=== PATIENT | male | born 1990 | race Caucasian/White ===

== ENCOUNTER → 2016-12-05 | Outpatient (CLI) | payer SELFPAY | LOC: M OUTALCOH 12:37 | PROVIDERS: ATTEND Psychiatry & Neurology Psychiatry | DX: Z13.9 Encounter for screening, unspecified (principal); F11.20 Opioid dependence, uncomplicated; F14.20 Cocaine dependence, uncomplicated ==

== ENCOUNTER 2017-04-28 15:42 | Emergency (ER) | payer MEDICAID, OTHER ==
[~2017-04-28] VITALS: Ht 193 cm; Wt 101.2 kg
[2017-04-28] MEDS ORDERED: CEFTAROLINE FOSAMIL 600 MG in D5W MINI-BAG PLUS 50 ML IV ONE (18:30)
[2017-04-28] MEDS ORDERED: IBUPROFEN 600 MG TAB PO ONE (18:30)
[2017-04-28 19:10] LABS: BASO % 0.3 % (0.0-1.0); EOS # 0.1 K/mm3 (0.0-0.50); EOS % 0.7 % (0.0-3.0); LARGE UNSTAINED CELL # 0.2 K/mm3 (0.0-0.4); LARGE UNSTAINED CELL % 1.7 % (0.0-4.0); LYMPH # 1.5 K/mm3 (1.5-6.5); LYMPH % 11.6 % (24.0-44.0); MEAN CORPUSCULAR HEMOGLOBIN 31.9 pg (27.0-33.0); MEAN CORPUSCULAR HGB CONC 36.3 g/dl (32.0-36.5); MEAN CORPUSCULAR VOLUME 87.9 fl (80.0-96.0); MONO # 0.9 K/mm3 (0.0-0.8); MONO % 7.5 % (0.0-5.0); NEUTROPHILS # 8.9 K/mm3 (1.8-7.7); NEUTROPHILS % 78.2 % (36.0-66.0); PLATELET COUNT, AUTOMATED 185 k/mm3 (150-450); RED CELL DISTRIBUTION WIDTH 11.9 % (11.5-14.5); WHITE BLOOD COUNT 11.4 K/mm3 (4.0-10.0)
--- NOTE | 2017-04-28 19:25 | REP ---
Duplex extremity venous ultrasound: Bilateral lower extremity. History: Pain and swelling. Findings: The deep veins are anechoic and fully compressible from the groin to the popliteal fossa in the right and left lower extremity. Color flow imaging is homogeneous. Spectral Doppler interrogation demonstrates intact respiratory variation in flow and normal manual augmentation of flow. There is no evidence of deep vein thrombosis. Impression: Negative bilateral lower extremity duplex venous ultrasound. No evidence of deep vein thrombosis. Signed by Mike Abbott MD 04/28/2017 07:16 P
[2017-04-28 19:26] LABS: ALBUMIN 3.5 GM/DL (3.2-5.2); ALBUMIN/GLOBULIN RATIO 0.78 (1.00-1.93); ALKALINE PHOSPHATASE 81 U/L (45-117); ALT/SGPT 65 U/L (12-78); ANION GAP 13 MEQ/L (8-16); AST/SGOT 46 U/L (15-37); BLOOD UREA NITROGEN 9 MG/DL (7-18); CARBON DIOXIDE LEVEL 24 MEQ/L (21-32); CHLORIDE LEVEL 98 MEQ/L (98-107); GLOMERULAR FILTRATION RATE > 60.0 (>60); GLUCOSE, FASTING 115 MG/DL (70-105); POTASSIUM SERUM 3.1 MEQ/L (3.5-5.1); SODIUM LEVEL 135 MEQ/L (136-145)
[2017-04-28] MEDS ORDERED: KEFL500C17 PO (20:24)
[2017-04-28] MEDS ORDERED: BACT800T5 PO (20:24)
[2017-04-28 20:37] VITALS: BP 130/81
== END 2017-04-28 20:30 | disposition home or self-care (01) ==
LOC: M ED 15:42
DX: L03.115 Cellulitis of right lower limb (principal); L03.116 Cellulitis of left lower limb; R50.9 Fever, unspecified; Z86.19 Personal history of other infectious and parasitic diseases; F17.200 Nicotine dependence, unspecified, uncomplicated

== ENCOUNTER → 2018-06-11 | Outpatient (REF) | payer MEDICAID ==
[2018-06-11 12:53] LABS: BASO # 0.1 10^3/uL (0.0-0.2); BASO % 0.9 % (0.0-1.0); EOS # 0.2 10^3/uL (0.0-0.50); HEMATOCRIT 45.8 % (42.0-52.0); HEMOGLOBIN 16.6 g/dl (13.5-17.5); IMMATURE GRANULOCYTE % 0.2 % (0-3.0); LYMPH # 2.1 10^3/uL (1.5-6.5); LYMPH % 36.4 % (24.0-44.0); MEAN CORPUSCULAR HEMOGLOBIN 32.7 pg (27.0-33.0); MEAN CORPUSCULAR HGB CONC 36.2 g/dl (32.0-36.5); MEAN CORPUSCULAR VOLUME 90.3 fl (80.0-96.0); MONO # 0.6 10^3/uL (0.0-0.8); MONO % 10.2 % (0.0-5.0); NEUTROPHILS # 2.8 10^3/uL (1.8-7.7); NEUTROPHILS % 49.3 % (36.0-66.0); PLATELET COUNT, AUTOMATED 195 10^3/uL (150-450); RED BLOOD COUNT 5.07 10^6/uL (4.30-6.10); RED CELL DISTRIBUTION WIDTH 11.9 % (11.5-14.5); WHITE BLOOD COUNT 5.7 10^3/uL (4.0-10.0)
[2018-06-11 13:06] LABS: ALBUMIN 4.1 GM/DL (3.2-5.2); ALBUMIN/GLOBULIN RATIO 1.14 (1.00-1.93); ALKALINE PHOSPHATASE 73 U/L (45-117); ALT/SGPT 204 U/L (12-78); ANION GAP 6 MEQ/L (8-16); AST/SGOT 84 U/L (7-37); BILIRUBIN,TOTAL 1.1 MG/DL (0.2-1.0); BLOOD UREA NITROGEN 16 MG/DL (7-18); CALCIUM LEVEL 9.2 MG/DL (8.5-10.1); CARBON DIOXIDE LEVEL 28 MEQ/L (21-32); CHLORIDE LEVEL 106 MEQ/L (98-107); GLOMERULAR FILTRATION RATE > 60.0 (>60); GLUCOSE, FASTING 84 MG/DL (70-100); POTASSIUM SERUM 4.1 MEQ/L (3.5-5.1); SODIUM LEVEL 140 MEQ/L (136-145); TOTAL PROTEIN 7.7 GM/DL (6.4-8.2)
[2018-06-12 13:27] LABS: HEPATITIS B SURFACE ANTIBODY POSITIVE (POSITIVE)
[2018-06-12 13:38] LABS: HEPATITIS B SURFACE ANTIGEN NEGATIVE (NEGATIVE)
[2018-06-12 14:07] LABS: HIV 1&2 SCREEN CENTAUR NEGATIVE (NEGATIVE)
[2018-06-20 00:08] LABS: ALPHA 2-MACROGLOBULIN 230 mg/dL (110-276); ALT 210 IU/L (0-55); APOLIPOPROTEIN A-1 103 mg/dL (101-178); GGT 19 IU/L (0-65); HAPTOGLOBIN 115 mg/dL (34-200); HEPATITIS A IgG TOTAL Positive (Negative); HEPATITIS B CORE ANTIBODY IGG Negative (Negative); HEPATITIS C QUANTITATION 456830 IU/mL (.); HEPATITIS C VIRUS GENOTYPE 3 (.); NECROINFLAM SCORE 0.82 (0.00-0.17); NECROINFLAMM GRADE A3-Severe activity (.); TOTAL BILIRUBIN 0.8 mg/dL (0.0-1.2)
== END ==
LOC: M SFHCPLAZ 10:41
DX: B18.2 Chronic viral hepatitis C (principal)

== ENCOUNTER 2019-01-01 16:58 | Emergency (ER) | payer MEDICAID, OTHER ==
[~2019-01-01] VITALS: Ht 193 cm; Wt 93.5 kg
[~2019-01-01 16:58] MED LIST: BACT800T5 PO; KEFL500C17 PO
[2019-01-01] MEDS ORDERED: HYDR-3363 PO (17:12)
[2019-01-01] MEDS ORDERED: CLON-412 PO (17:12)
[2019-01-01] MEDS ORDERED: ESCI10TA2 PO (17:12)
[2019-01-01] MEDS ORDERED: SUBO8MIS (17:12)
[2019-01-01] MEDS ORDERED: GABA-843 PO (17:12)
[2019-01-01] MEDS ORDERED: CEFTAROLINE FOSAMIL 600 MG in D5W MINI-BAG PLUS 50 ML IV ONE (18:15)
[2019-01-01 18:54] LABS: BASO # 0.1 10^3/uL (0.0-0.2); EOS # 0.3 10^3/uL (0.0-0.50); EOS % 2.9 % (0.0-3.0); HEMATOCRIT 37.1 % (42.0-52.0); HEMOGLOBIN 13.4 g/dl (13.5-17.5); LYMPH # 2.3 10^3/uL (1.5-6.5); LYMPH % 27.1 % (24.0-44.0); MEAN CORPUSCULAR HEMOGLOBIN 30.7 pg (27.0-33.0); MEAN CORPUSCULAR HGB CONC 36.1 g/dl (32.0-36.5); MEAN CORPUSCULAR VOLUME 85.1 fl (80.0-96.0); MONO % 11.9 % (0.0-5.0); NEUTROPHILS # 4.9 10^3/uL (1.8-7.7); NEUTROPHILS % 56.8 % (36.0-66.0); PLATELET COUNT, AUTOMATED 221 10^3/uL (150-450); RED BLOOD COUNT 4.36 10^6/uL (4.30-6.10); WHITE BLOOD COUNT 8.6 10^3/uL (4.0-10.0)
[2019-01-01 19:29] LABS: BLOOD UREA NITROGEN 14 MG/DL (7-18); C REACTIVE PROTEIN QUANTITATIV 5.17 MG/DL (0.00-0.30); CALCIUM LEVEL 8.4 MG/DL (8.5-10.1); CARBON DIOXIDE LEVEL 25 MEQ/L (21-32); CHLORIDE LEVEL 106 MEQ/L (98-107); CREATININE FOR GFR 1.22 MG/DL (0.70-1.30); GLOMERULAR FILTRATION RATE > 60.0 (>60); GLUCOSE, FASTING 90 MG/DL (70-100); POTASSIUM SERUM 3.6 MEQ/L (3.5-5.1); SODIUM LEVEL 136 MEQ/L (136-145)
[2019-01-01 19:40] LABS: ERYTHROCYTE SEDIMENTATION RATE 16 mm/hr (0-15)
[2019-01-01] MEDS ORDERED: KEFL500C17 PO (19:53)
[2019-01-01] MEDS ORDERED: BACT800T5 PO (19:53)
[2019-01-01 20:03] VITALS: BP 122/69
== END 2019-01-01 20:04 | disposition home or self-care (01) ==
LOC: M ED 16:58
DX: L03.116 Cellulitis of left lower limb (principal); F11.10 Opioid abuse, uncomplicated; F14.10 Cocaine abuse, uncomplicated; B19.20 Unspecified viral hepatitis C without hepatic coma; F41.9 Anxiety disorder, unspecified; F32.9 Major depressive disorder, single episode, unspecified; F17.210 Nicotine dependence, cigarettes, uncomplicated; Z79.899 Other long term (current) drug therapy
CPT/HCPCS: 80048; 83605; 85025; 85652; 86140; 96365; 96366; 99284; J0712

== ENCOUNTER 2019-11-25 06:42 | Emergency (ER) | payer OTHER, SELFPAY ==
[~2019-11-25] VITALS: Ht 193 cm; Wt 102.5 kg
[2019-11-25 06:42] VITALS: BP 132/96
[~2019-11-25 06:42] MED LIST changes: +CLON-412 PO; +ESCI10TA2 PO; +GABA-843 PO; +HYDR-3363 PO; +SUBO8MIS
--- NOTE | 2019-11-25 08:00 | REP ---
Left elbow series: Four views. History: Loss of motion. Findings: Four views of the left elbow demonstrate normal bones, joints, and soft tissues. No fracture, subluxation or joint effusion is seen. Soft tissues are unremarkable. Impression: Negative radiographs of the left elbow. Electronically Signed by Mike Abbott MD 11/25/2019 07:52 A
--- NOTE | 2019-11-25 08:03 | REP ---
Soft-tissue ultrasound left antecubital fossa. History: Rule out abscess. Findings: The left antecubital fossa is scanned medially and laterally. No abnormal fluid collection is seen. No evidence of venous thrombus or mass lesion. Impression: No abnormality noted sonographically. Electronically Signed by Mike Abbott MD 11/25/2019 07:55 A
== END 2019-11-25 08:15 | disposition home or self-care (01) ==
LOC: M ED 06:42
DX: R20.2 Paresthesia of skin (principal); F11.90 Opioid use, unspecified, uncomplicated; F17.210 Nicotine dependence, cigarettes, uncomplicated

== ENCOUNTER 2019-11-28 22:55 | Emergency (ER) | payer MEDICAID, SELFPAY ==
[~2019-11-28] VITALS: Ht 193 cm; Wt 100.0 kg
[2019-11-28 23:03] VITALS: BP 140/86
[2019-11-28] MEDS ORDERED: BACT800T5 PO (23:03)
[2019-11-28] MEDS ORDERED: BACTRIM 160MG/800MG DS TAB PO ONE (23:15)
== END 2019-11-28 23:33 | disposition home or self-care (01) ==
LOC: M ED 22:55
DX: L03.114 Cellulitis of left upper limb (principal)

== ENCOUNTER 2019-12-10 07:12 | Emergency (ER) | payer MEDICAID ==
[~2019-12-10] VITALS: Ht 193 cm; Wt 96.8 kg
[2019-12-10 08:15] LABS: BASO % 0.7 % (0.0-1.0); EOS # 0.2 10^3/uL (0.0-0.5); EOS % 2.8 % (0.0-3.0); HEMATOCRIT 40.5 % (42.0-52.0); HEMOGLOBIN 14.2 g/dl (13.5-17.5); LYMPH # 1.9 10^3/uL (1.5-5.0); MEAN CORPUSCULAR HEMOGLOBIN 31.3 pg (27.0-33.0); MEAN CORPUSCULAR HGB CONC 35.1 g/dl (32.0-36.5); MEAN CORPUSCULAR VOLUME 89.2 fl (80.0-96.0); MONO # 0.5 10^3/uL (0.0-0.8); MONO % 10.1 % (0.0-5.0); NEUTROPHILS # 2.7 10^3/uL (1.5-8.5); PLATELET COUNT, AUTOMATED 306 10^3/uL (150-450); RED BLOOD COUNT 4.54 10^6/uL (4.30-6.10); WHITE BLOOD COUNT 5.4 10^3/uL (4.0-10.0)
--- NOTE | 2019-12-10 08:24 | REP ---
Left shoulder: Three views. History: Left shoulder pain. Findings: The left glenohumeral and acromioclavicular joints are normally aligned. No fracture or subluxation is seen. Periarticular soft tissues are unremarkable. Impression: Negative radiographs of the left shoulder. Electronically Signed by Mike Abbott MD 12/10/2019 08:16 A
[2019-12-10 08:43] LABS: ALBUMIN 3.2 GM/DL (3.2-5.2); ALT/SGPT 117 U/L (12-78); BILIRUBIN,TOTAL 0.7 MG/DL (0.2-1.0); BLOOD UREA NITROGEN 9 MG/DL (7-18); CALCIUM LEVEL 8.5 MG/DL (8.5-10.1); CARBON DIOXIDE LEVEL 27 MEQ/L (21-32); CHLORIDE LEVEL 106 MEQ/L (98-107); CREATININE FOR GFR 0.85 MG/DL (0.70-1.30); GLOMERULAR FILTRATION RATE > 60.0 (>60); GLUCOSE, FASTING 86 MG/DL (70-100); POTASSIUM SERUM 3.8 MEQ/L (3.5-5.1); SODIUM LEVEL 137 MEQ/L (136-145); TOTAL PROTEIN 7.1 GM/DL (6.4-8.2)
--- NOTE | 2019-12-10 09:16 | REP ---
Left upper extremity duplex venous ultrasound: History: Left upper extremity paresthesias. History of intravenous drug use. Rule out venous thrombosis. Findings: The left internal jugular, axillary, brachial, basilic, and cephalic veins are anechoic and compressible in the left upper extremity. Color flow imaging is homogeneous. Spectral Doppler interrogation is unremarkable. There is no evidence of left upper extremity venous thrombosis. Impression: Negative left upper extremity duplex venous ultrasound. No evidence of venous thrombosis. Electronically Signed by Mike Abbott MD 12/10/2019 09:07 A
--- NOTE | 2019-12-10 09:18 | REP ---
There is a left upper extremity arterial Doppler ultrasound: History: Left upper extremity paresthesias. History of intravenous drug use. Findings: Left upper extremity arterial tree is normal in caliber, demonstrating normal arterial Doppler waveforms and velocities. No evidence of occlusion or stenosis seen. Velocity chart left upper extremity arteries: Distal subclavian artery 129 cm/S Axillary artery 80 Proximal radial artery mid humerus 68 Proximal radial artery forearm 67 Radial artery rest 58 Ulnar artery mid humerus 121 Ulnar artery proximal forearm 65 Ulnar artery at the wrist 67 Electronically Signed by Mike Abbott MD 12/10/2019 09:10 A
[2019-12-10 09:40] VITALS: BP 134/87
== END 2019-12-10 09:32 | disposition left against medical advice (07) ==
LOC: M ED 07:12
DX: R74.0 Nonspecific elevation of levels of transaminase and lactic acid dehydrogenase [LDH] (principal); R53.1 Weakness; B19.20 Unspecified viral hepatitis C without hepatic coma; F11.20 Opioid dependence, uncomplicated; F17.210 Nicotine dependence, cigarettes, uncomplicated

== ENCOUNTER → 2020-04-26 | Outpatient (REF) | payer OTHER | LOC: M LAB REF 16:41 | PROVIDERS: ATTEND Surgery | DX: J00 Acute nasopharyngitis [common cold] (principal) ==

== ENCOUNTER 2021-08-25 11:59 | Inpatient (IN) | payer MEDICAID, OTHER ==
[~2021-08-25] VITALS: Ht 193 cm; Wt 95.5 kg
[~2021-08-25 11:59] MED LIST changes: +ESCI10TA16 PO; -ESCI10TA2 PO; +GABA-282 PO; -GABA-843 PO
[2021-08-25 13:00] LABS: HEMOGLOBIN 14.5 g/dl (13.5-17.5); MEAN CORPUSCULAR HEMOGLOBIN 31.3 pg (27.0-33.0); MEAN CORPUSCULAR HGB CONC 34.5 g/dl (32.0-36.5); MEAN CORPUSCULAR VOLUME 90.7 fl (80.0-96.0); PLATELET COUNT, AUTOMATED 248 10^3/uL (150-450); RED BLOOD COUNT 4.63 10^6/uL (4.30-6.10); WHITE BLOOD COUNT 14.5 10^3/uL (4.0-10.0)
[2021-08-25] MEDS ORDERED: LORazepam 1 MG TAB PO STA (13:18)
[2021-08-25 13:26] LABS: AMPHETAMINES LEVEL URINE POSITIVE (NEGATIVE); BARBITURATES URINE NEGATIVE (NEGATIVE); BENZODIAZEPINES URINE NEGATIVE (NEGATIVE); CANNABINOIDS URINE POSITIVE (NEGATIVE); COCAINE METABOLITE URINE POSITIVE (NEGATIVE); METHADONE URINE NEGATIVE (NEGATIVE); OPIATES URINE POSITIVE (NEGATIVE); PHENCYCLIDINE URINE NEGATIVE (NEGATIVE)
[2021-08-25 13:35] LABS: ALBUMIN 4.1 GM/DL (3.2-5.2); ALT/SGPT 60 U/L (12-78); BILIRUBIN,DIRECT 0.3 MG/DL (0.0-0.2); BLOOD UREA NITROGEN 15 MG/DL (7-18); CALCIUM LEVEL 8.9 MG/DL (8.5-10.1); CARBON DIOXIDE LEVEL 28 MEQ/L (21-32); CHLORIDE LEVEL 106 MEQ/L (98-107); CREATININE FOR GFR 1.32 MG/DL (0.70-1.30); ETHYL ALCOHOL (ETHANOL) < 0.003 % (0.000-0.010); GLOMERULAR FILTRATION RATE > 60.0 (>60); GLUCOSE, FASTING 90 MG/DL (70-100); POTASSIUM SERUM 3.7 MEQ/L (3.5-5.1); SALICYLATE LEVEL < 1.7 MG/DL (5.0-30.0); SODIUM LEVEL 141 MEQ/L (136-145); TOTAL PROTEIN 7.8 GM/DL (6.4-8.2)
[2021-08-25 13:36] LABS: ACETAMINOPHEN LEVEL < 2.0 UG/ML (10.0-30.0)
[2021-08-25 17:57] LABS: RSV AMPLIFICATION NEGATIVE (NEGATIVE)
[2021-08-25] MEDS ORDERED: NAPR-837 PO (18:00)
[2021-08-25] MEDS ORDERED: HOME MED LIST COMPLETE! XX SCH (18:05)
[2021-08-25] MEDS ORDERED: OLANZapine ORAL DISINTEGRATING TAB 5MG PO PRN (18:55)
[2021-08-25] MEDS ORDERED: ACETAMINOPHEN TAB 650MG DOSE (2X325MG) PO PRN (18:55)
[2021-08-25] MEDS ORDERED: MOM 30ML SUSPENSION UDC PO PRN (18:55)
[2021-08-25] MEDS ORDERED: MAALOX 30 ML SUSP *UDC PO PRN (18:55)
[2021-08-25] MEDS ORDERED: NAPROXEN 250 MG TAB PO SCH (21:00)
[2021-08-25] MEDS ORDERED: NAPROXEN 250 MG TAB PO ONE (21:00)
[2021-08-25 23:39] VITALS: BP 124/67
[2021-08-25] MEDS: traZODone 50 MG TAB PO PRN (23:45)
[2021-08-26 06:33] VITALS: BP 109/56
--- NOTE | 2021-08-26 09:56 | HPEPDOC ---
[facility] Medical History & Physical Date of Admission Aug 26, 2021 Date of Service: Aug 26, 2021 History and Physical CHIEF COMPLAINT: "I don't want to talk about it" HISTORY OF PRESENT ILLNESS: 31-year-old male with past medical history of chronic hepatitis C, opioid dependence, insomnia, depression presented emergency room department via police enforcement for possible suicidal ideation. Patient did not want to contribute to the history at this time. As per chart review, patient was recently released from [facility] approximately a month and a half ago and relapsed using recreational drugs. He was found by his family using ? IV heroin and got upset when the police was called. It is possible he may have made suicidal threats. At this junction, patient reports he was seen at [facility] clinic approximately a month ago for back pain and was given naproxen which she has been taking since. He reports resolution in his pain. He denies problems with urination and denied hematuria. He denies chest pain, shortness of breath, abdominal pain, headaches, blurry vision, problems with bowel movements. PAST MEDICAL HISTORY: As mentioned above PAST SURGICAL HISTORY: Denies SOCIAL HISTORY: Smokes approximately a pack per day. Admits to using recreational drugs, drug screen was positive for opiates, amphetamines, cocaine, and cannabis. Denies alcohol use. FAMILY HISTORY: Mother: Lung carcinoma ALLERGIES: Please see below. REVIEW OF SYSTEMS: 10 point review of system was negative except for what is noted in the HPI HOME MEDICATIONS: Please see below. PHYSICAL EXAMINATION: VITAL SIGNS: Please see below General: Lying in bed, no acute distress Head/Neck/Throat: Trachea midline, mucous membranes moist Eyes: Sclera anicteric, no erythema or discharge appreciated bilateral Thorax: Normal respiratory effort on room air, lungs clear to auscultation bilaterally, no wheezes/rales/rhonchi Cardiovascular: Normal rate, regular rhythm, normal S1, S2; no S3, S4, rubs/gallops/murmurs Abdomen: Bowel sounds present, soft/nontender/nondistended Genitourinary: No CVA tenderness, no Gómez in place Musculoskeletal: Moving all extremities, no edema Skin: Warm, dry Neurologic: AAOx3, speech fluent and goal-directed, no focal deficits, grossly intact LABORATORY DATA: See below. IMAGING: No imaging to review at this time MICROBIOLOGY: Please see below. ASSESSMENT/PLAN: 31-year-old male 31-year-old male with past medical history of chronic hepatitis C, opioid dependence, insomnia, depression presented emergency room department via police enforcement for possible suicidal ideation. #Mood disorder -We will defer to psychiatric team for management. #Leukocytosis -There is no evidence of infection at this time and suspect that this is reactive. Repeat CBC to ensure it is downtrending, follow off antibiotics. #Acute kidney injury -Creatinine in 12/10/2019 was 0.85. Patient was taking naproxen and should be discontinued. Repeat chemistry to ensure renal function is improving. #DVT prophylaxis -Encourage ambulation Vital Signs Vital Signs Date Time Temp Pulse Resp B/P (MAP) Pulse Ox O2 Delivery O2 Flow Rate FiO2 08/26/21 06:33 97.7 65 16 109/56 (73) 96 Room Air Laboratory Data Labs 24H Laboratory Tests 2 08/25/21 12:44: Nucleated Red Blood Cells % (auto) 0.0, Anion Gap 7L, Glomerular Filtration Rate > 60.0, Calcium Level 8.9, Total Bilirubin 1.0, Direct Bilirubin 0.3H, Aspartate Amino Transf (AST/SGOT) 116H, Alanine Aminotransferase (ALT/SGPT) 60, Alkaline Phosphatase 103, Total Protein 7.8, Albumin 4.1, Albumin/Globulin Ratio 1.1, Thyroid Stimulating Hormone (TSH) 2.740, Salicylates Level < 1.7L, Urine Opiates Screen POSITIVEH, Urine Methadone Screen NEGATIVE, Acetaminophen Level < 2.0L, Urine Barbiturates Screen NEGATIVE, Urine Phencyclidine Screen NEGATIVE, Urine A mphetamines Screen POSITIVEH, Urine Benzodiazepines Screen NEGATIVE, Urine Cocaine Metabolite Screen POSITIVEH, Urine Cannabinoids Screen POSITIVEH, Ethyl Alcohol Level < 0.003 08/25/21 17:13: Coronavirus (COVID-19)(PCR) NEGATIVE, Influenza Type A (RT-PCR) NEGATIVE, Influenza Type B (RT-PCR) NEGATIVE, Respiratory Syncytial Virus (PCR) NEGATIVE CBC/BMP Laboratory Tests 08/25/21 12:44 Home Medications Scheduled Naproxen (Naprosyn) 500 Mg Tablet, 500 MG PO BID take with food Allergies Coded Allergies: No Known Allergies (Unverified , 04/28/17) SHAQ TEIENNE M.D. Aug 26, 2021 09:56
[2021-08-26 15:42] VITALS: BP 122/75
[2021-08-26] MEDS: traZODone 50 MG TAB PO PRN (21:05)
--- NOTE | 2021-08-26 23:44 | MHHPE ---
REPLACED BY [facility] HISTORY AND PHYSICAL DATE OF ADMISSION: 08/25/2021 This is a video assessment. We are doing this because of the pandemic. He is in the inpatient psychiatric unit, I am at home. He is seen in the presence of staff. CHIEF COMPLAINT: Has been stressed. SUBJECTIVE: He is 31 years old. He lives with his parents and a brother. The patient was brought in as parents were concerned, he had relapsed into using drugs and was agitated. He says that he relapsed using heroin within the last couple of days, had been clean of drug use for 22 months, he says he spent quite a bit of it in long term, was released just over a month ago. Says relapsed as this is a difficult time of the year for him, and since his daughter , she was killed, she was a baby, this was several years ago, apparently was killed by the baby's mother ex-partner. He says it is generally a difficult time of year just prior to Anthony and that the last few years during this time he has been locked up, this is the first [place] in a little white that he was at home, says the distress tended to trigger the relapse, he used heroin, says injected it, and did that on a couple of occasions, all within the last couple of days. Says his parents found out as they saw the paraphernalia. He was asleep, they woke him up, his brother from out of town was there, he does not get along with him, says he was there essentially for [place]. An argument ensued, matters escalated and he is concerned that he may go back to long term as he is on parole and says his mother said that she would call the police because he wanted to leave, says he wanted to get away from the situation and the argument, and mother called the police, the patient says that he said that he would rather hurt himself than go back to long term. Says he said that because he was frustrated, but had no intentions of harming himself, he has been adamant that he is not suicidal. He was brought by the police to the emergency room, assessed and there were concerns regarding his ability to maintain his safety, he mentioned physician had recommended admission, and apparently mother had expressed concerns about the patient's ability to maintain his safety, the patient is hospitalized. He is upset with that, he says he does not need to be here and that he had intentions of hurting himself. Acknowledges that he had said that he would as he was frustrated. Has been using heroin intravenously, says it had only happened in the last couple of days, and that he had not been using any for about 22 months. Says has had contact with [facility] recently, had apparently been seen for an appointment, though not quite sure, but that he is in the process of being seen there. Says this is also a recommendation of his staff combat information center officer, who he is in contact with about once a week. He thinks the parole office may be aware of his being hospitalized, he suggest maybe the patient's mother had informed the officer. He says he is not intentionally worried about parole or its consequences, but more concern that he relapsed and wants to address that. Says had been doing relatively well up to that point, and that he did not see any professionals there when he was in long term. The emergency room records suggest that he was found upstairs in his room by his brother that he was "flopping around" on the floor, there was paraphernalia seen, it was verbally agitated and family called the police. He then ran downstairs, grabbed a knife and was pacing up and down the street and that if police attempted to pick him up, he would slit their throats. He adamantly denies that. Vaguely he acknowledges that it is possible that he may have said these things, but that he does not recall them, as he was under the influence of drugs. Says he had only used heroin. Urine toxicology apparently positive for cocaine, opiates, amphetamines and cannabis. He says it is quite possible the heroin was contaminated by the other products. Denies feeing pervasively depressed or anxious, but acknowledges feels more stressed around this time given his daughter's murder. He says generally the stress diminishes after the holidays. Gets along with his parents for the most part, says is close to his mother. He also suggests gets along generally with the brother that he lives with, but not with the other brother who was visiting. Has attended rehab in the past, last did that within the last few years, says completed the one at [facility], at that time was seen by psychiatry. Says he thinks he was put on Wellbutrin, which he took for a few months, was also no Suboxone, says did not do well with that and may have had difficulties taking it and this was switched over to Subutex buprenorphine without the naloxone and says did well on that, and stopped when he went to long term. He says he received no services while in long term. [facility] was for drug possession and forgery. PAST PSYCHIATRIC HISTORY: Denies any formally. No history of inpatient hospitalizations or suicidal attempts. FAMILY PSYCHIATRIC HISTORY: Says his mother may have been treated but he is not sure, and is not aware of details. MEDICAL HISTORY: Contacted hepatitis, says was cured of it. Takes Naproxen for aches and pains. SOCIAL HISTORY: We did not go into details, currently lives with his parents after getting out of long term, he was in there for a couple of years. He lost his baby daughter about 10 years ago, she was murdered by the baby's mother partner. It was after that, that the patient mostly resorted to drug use. Says he has been in several rehabs, last one was within the last few years. MENTAL STATUS EXAMINATION: Fairly neat, he is guarded, no agitation, no psychomotor retardation, no abnormal movements noted, he is coherent, gives short answers. Affect is restricted in range. Displays irritability when certain aspects of the history are asked or pointed out, particularly the discrepancies between his narration and that obtain in the emergency room, including from the collateral information. He denies any suicidal thoughts or intents. Denies any thoughts of harming anyone else. Does not appear to be internally occupied. On delusional ideations elicited. His cognition is grossly intact, in that he is alert and oriented, can spell the word house forwards and backwards, but could only recall one out of three objects after five minutes. Intellect average. Judgment and insight are compromised. ASSESSMENT: 1. Unspecified depressive disorder. 2. Opioid use disorder. 3. Opioid (heroin) intoxication. 4. Legal disabilities. 5. Baby daughter's murder. 6. Limited support. Has been stressed, gets stressed at this time of year for reasons explained above, his daughter's murder. Has relapsed after being drug free, he says, for almost 2 years. There are discrepancies between his narrative and that obtained in the emergency room, possibly from collateral sources as well and I understand his mother had expressed great concern for his safety and his ability to maintain it. It is quite possible he may be minimizing his difficulties and the other possibility is disorder recollection of events given the intoxication. He may well be minimizing his drug use as well, since his toxicology is positive for cocaine, amphetamines and cannabis as well. PLAN: He is admitted to the inpatient psychiatry unit, placed on relevant precautions. We are looking at obtaining collateral information and the importance of doing so is discussed, he refer us to get information from his mother. He will receive a medical consult if indicated. He is to be encouraged to participate in activities in the unit. Placed on withdrawal precautions as well, though unlikely, but I am concern about his accuracy of what has been going on. I do not think at this point he requires a scheduled psychotropic such as antidepressants. He will be discharge to follow up once he is stable. I anticipate a 3 to 5 day stay. The assessment took 45 minutes.
[2021-08-27 06:57] LABS: HEMOGLOBIN 14.2 g/dl (13.5-17.5); MEAN CORPUSCULAR HEMOGLOBIN 31.1 pg (27.0-33.0); MEAN CORPUSCULAR HGB CONC 34.6 g/dl (32.0-36.5); MEAN CORPUSCULAR VOLUME 89.9 fl (80.0-96.0); PLATELET COUNT, AUTOMATED 237 10^3/uL (150-450); RED BLOOD COUNT 4.56 10^6/uL (4.30-6.10); WHITE BLOOD COUNT 6.4 10^3/uL (4.0-10.0)
[2021-08-27 07:17] LABS: BLOOD UREA NITROGEN 11 MG/DL (7-18); CALCIUM LEVEL 8.9 MG/DL (8.5-10.1); CARBON DIOXIDE LEVEL 27 MEQ/L (21-32); CHLORIDE LEVEL 109 MEQ/L (98-107); CREATININE FOR GFR 0.85 MG/DL (0.70-1.30); GLOMERULAR FILTRATION RATE > 60.0 (>60); GLUCOSE, FASTING 97 MG/DL (70-100); MAGNESIUM LEVEL 2.2 MG/DL (1.8-2.4); PHOSPHORUS LEVEL 2.9 MG/DL (2.5-4.9); POTASSIUM SERUM 4.2 MEQ/L (3.5-5.1); SODIUM LEVEL 141 MEQ/L (136-145)
[2021-08-27] MEDS: NICOTINE 21MG/24HR 1 EA TRANSDERMAL TD SCH (09:00)
--- NOTE | 2021-08-27 09:58 | MHIPNPDOC ---
[facility] Progress Note Progress Note DATE OF SERVICE: 08/27/21 HISTORY: 31-year-old male with no past psychiatric history who presents after a reported polysubstance overdose and homicidal ideation with plan to slit his family members throats with a knife, patient denies this and minimizes the threat on interview today, family called police and was brought to the ED for evaluation, drug screen was positive for cocaine, amphetamines, opioids, cannabinoid, states he is agreeable to going to [facility] and continue with therapy for substance use. Interval: Patient reports that he has acute/chronic stressors of his " baby daughter's murder", polysubstance use and needing help for addictions, pending homelessness and lack of supports. States he does not feel he needs medications and rather would seek therapy for addictions and mood symptoms. When asked about suicidal ideations does not adamantly deny having these thoughts and was vague on answering, currently denies homicidal ideations. Did not endorse acute physical complaints or other concerns on interview, agreeable to possible discharge in subsequent days if continues to feel he has improvement and in coordination with social work for safety planning. VITAL SIGNS: See below. NEW TEST RESULTS: see below CURRENT MEDICATIONS: See below. MENTAL STATUS EXAMINATION: Patient is a 31-year old male, who is no acute distress, fair hygiene, fair eye contact, appears stated age, sitting in a chair in hospital clothing Speech: Is normal. Language skills are good. Thought processes including: Linear, logical, goal-directed. Thought content: Vague suicidal ideations over the past few days, does not endorse intent or plan today, does not endorse homicidal ideation, intent or plan today. Abstract reasoning, and computation: Average based on interview description of associations: Normal based on interview. Description of abnormal or psychotic thoughts: Denies, not observed. Judgment: Poor, improving Insight: Fair. Orientation: X3. Recent and remote memory: Intact. Attention span and concentration: Intact Language: intact Fund of knowledge: Average. Mood: "alright" Affect: Somewhat withdrawn, mildly constricted, mood congruent, appropriate DIAGNOSES: Substance-induced mood disorder versus adjustment disorder Cocaine use disorder Amphetamine use disorder Opioid use disorder Cannabis use disorder ASSESSMENT: Patient has symptoms consistent with substance induced behavioral dysregulation and mood changes, continues to report some vague suicidal ideations, denies any suicidal intent or plan today, agreeable to safe discharge plan with follow-up [facility] outpatient in context of severe, risky polysubstance abuse. Does not want medications for mood, addictions at this time. Reports he took Wellbutrin in the past, but was noncompliant with medication upon discharge noticing limited benefit. Patient does not endorse acute physical complaints, medication side effects. MANAGEMENT PLAN: Continue with supportive modalities and safe discharge planning, consider starting naltrexone if patient amenable and refusing Suboxone, if 7 days since last opioid use. Consider starting Effexor or Wellbutrin (patient denying alcohol use) for stimulant cravings and or tobacco cravings if patient agreeable. TIME SPENT: 20 minutes. Vital Signs Vital Signs Date Time Temp Pulse Resp B/P (MAP) Pulse Ox O2 Delivery O2 Flow Rate FiO2 08/26/21 15:42 98.3 71 14 122/75 (91) 100 Room Air Laboratory Data 24H Labs Laboratory Tests 2 08/27/21 06:40: Nucleated Red Blood Cells % (auto) 0.0, Anion Gap 5L, Glomerular Filtration Rate > 60.0, Calcium Level 8.9, Phosphorus Level 2.9, Magnesium Level 2.2 CBC/BMP Laboratory Tests 08/27/21 06:40 Current Medications Current Medications Medications (Trade) Dose Ordered Sig/Cindy Route PRN Reason Start Time Stop Time Status Last Admin Dose Admin Acetaminophen (Tylenol Tab) 650 mg Q6HP PRN PO HEADACHE or MILD DISCOMFORT 08/25/21 18:55 Al Hydrox/Mg Hydrox/Simethicone (Mylanta) 30 ml Q4HP PRN PO HEARTBURN/INDIGESTION 08/25/21 18:55 Home Med (Home Med List Complete!) ASDIRECTED XX 08/25/21 18:05 08/25/21 18:02 DC Lorazepam (Ativan) 1 mg STAT STAT PO 08/25/21 13:18 08/25/21 13:19 DC 08/25/21 13:18 Magnesium Hydroxide (Milk Of Magnesia) 30 ml DAILYPRN PRN PO CONSTIPATION 08/25/21 18:55 Naproxen (Naprosyn) 500 mg BID PO 08/25/21 21:00 08/26/21 08:00 DC 08/25/21 21:00 Olanzapine (ZyPREXA ZYDIS) 5 mg Q6HP PRN PO ANXIETY/AGITATION 08/25/21 18:55 Trazodone HCl (Desyrel) 50 mg QHSP PRN PO INSOMNIA 08/25/21 18:55 08/26/21 21:05 Allergies Coded Allergies: No Known Allergies (Unverified , 04/28/17) JONG CHANG MD Aug 27, 2021 09:58
[2021-08-27 18:41] VITALS: BP 136/79
[2021-08-28] MEDS: NICOTINE 21MG/24HR 1 EA TRANSDERMAL TD SCH (08:20)
[2021-08-28] MEDS ORDERED: NICO21PAT TD (09:44)
--- NOTE | 2021-08-28 10:51 | MHDSPDOC ---
[facility] Discharge Summary Discharge Summary DATE OF ADMISSION: Aug 25, 2021 at 18:54 DATE OF DISCHARGE: Aug 28, 2021 Discharge diagnoses: 1. Adjustment disorder 2. Cocaine use disorder 3. Amphetamine use disorder 4. Opioid use disorder 5. Cannabis use disorder Reason for admission: Patient is a 31-year-old male with no past psychiatric history who presents after a reported polysubstance overdose and homicidal ideation with plan to slit his family members throats with a knife. Family called police and was brought to the ED for evaluation. Patient does not recall this event happening. Patient was recently in halfway for 22 months, was clean there and was release from halfway just over a month ago. States that he relapsed since. This is a difficult time of the year for him since his daughter was killed. Daughter was killed by babys mothers expartner. Has attended rehab in the past (prior to halfway); states that he completed the one at [facility] and at that time was seen by psychiatry. He thinks he was put on Wellbutrin, which he took for a few months but stopped because he did not feel a difference while on it. States that he was trialed on Suboxone but did not do well and was switched over to Subutex/buprenorphine without the naloxone and says he did well on that. He says he received no services while in halfway. Penitentiary was for drug possession and forgery. States he is agreeable to going to [facility] and continue with therapy for substance use. Vital signs: See below Consultants involved: See medical H&P by hospitalist Treatment and progress on the unit: [facility] a 9.39 legal status and was afforded the following treatment modalities: 1. Individual therapy 2. Group therapy 3. Medication management 4. Milieu therapy 5. Safe environment Hospital course: [facility] was [facility] on a 9.39 legal status. Was medically cleared prior to coming up to the [facility]. Toxicology screen was positive for cocaine, amphetamines, opioids, and cannabinoids. Patient continued to denies any acute physical complaints. Was given nicotine patch for tobacco use. Patient was initially was restricted in affect and was irritable; states that he did not have any suicide attempts or homicide attempts. Patient was agreeable to starting psych medications. He was started on PO Olanzapine 5mg PO q6h prn for anxiety/agitation and PO Trazadone 50mg qhs prn for insomnia. Patient was made aware of common rare side effects of medications. Patient found medications beneficial and tolerated them well without side effects and was alert and oriented x3 during stay. Patient denied acute physical complaints. Toxicology screen was positive for cocaine, amphetamines, opioids, and cannabinoids. TSH was within normal limits. Patient made aware to follow-up with outpatient primary doctor and to follow up with outpatient [facility] to receive treatment for polysubstance use. Denies depression, anxiety, suicide/homicide ideations or plans. Patient attended groups daily during stay. Patient symptoms improved with treatment. Patient was discharged home with follow-up. Patient felt safe for discharge. Was offered continued stay on voluntary admission but refused. Discharge assessment: On today's interview patient is alert and oriented and feeling good. He states that he is going to [facility] for outpatient treatment for his polysubstance abuse when he is discharged today. Denies suicidal or homicidal ideation, intent or planning. Patient has normal mentation, declines further hospitalization on voluntary status and meets criteria for discharge today, patient encouraged to return the hospital if symptoms worsen or change and encouraged to call unit if they feel they need provider's questions to be answered or help with medications or care. Mental status: Patient is a 31-year old male, who is no acute distress, fair hygiene, fair eye contact, appears stated age, sitting in a chair in hospital clothing. Speech: regular rate rhythm and volume Language skills are good. Thought processes including: Linear, logical, goal-directed. Thought content: denies any suicide ideation intent or plan and denies homicidal ideation intent or plan Abstract reasoning, and computation: Average Description of associations: Normal Description of abnormal or psychotic thoughts: Denies and not observed Judgment: Fair Insight: Fair Orientation: AAOx3 Recent and remote memory: Intact Attention span and concentration: Intact Language: intact Fund of knowledge: Average Mood: good Affect: somewhat withdrawn, mood congruent, appropriate Medications on discharge: See below See medication reconciliation: See below Taking into consideration safety state, status, safety plan, protective factors, modifiable, non-modifiable risk factors patient is at low risk on discharge for suicide according to [place] suicide evaluation. PLAN/FOLLOWUP ARRANGEMENTS: 1. Patient will go to [facility] regarding his polysubstance use disorder. 2. Patient will follow up with the mental health team available at [facility]. Total time: 30 minutes ETOH/Disorder Med Rx ETOH/DRUG DISORDER RX: Offrd @ d/c & pt refused Vital Signs/I&Os Vital Signs Date Time Temp Pulse Resp B/P (MAP) Pulse Ox O2 Delivery O2 Flow Rate FiO2 08/27/21 18:41 98.8 65 14 136/79 (98) Room Air 08/26/21 15:42 100 Medications Scheduled Naproxen (Naprosyn) 500 Mg Tablet, 500 MG PO BID, #30 (Reported) take with food Nicotine (Nicotine Patch) 21 Mg Patch.td24, 1 PATCH TD DAILY for Nicotine Withdrawal, #7 Allergies Coded Allergies: No Known Allergies (Unverified , 04/28/17) GME ATTESTATION My faculty preceptor for this patient encounter was physically present during the encounter and was fully available. All aspects of the patient interview, examination, medical decision making process, and medical care plan development were reviewed and approved by the faculty preceptor. The faculty preceptor is aware and concurs with the plan as stated in the body of this note and will attest to such by his/her cosignature. Elvia Felipe DO Aug 28, 2021 10:49
== END 2021-08-28 12:53 | disposition home or self-care (01) | DRG 755 ==
LOC: M ED 11:59 → M ED INP 18:54 → M PSY 23:15
PROVIDERS: ADMIT Student in an Organized Health Care Education/Training Program; ATTEND Student in an Organized Health Care Education/Training Program
DX: F43.20 Adjustment disorder, unspecified (principal); F12.90 Cannabis use, unspecified, uncomplicated; F11.90 Opioid use, unspecified, uncomplicated; F14.90 Cocaine use, unspecified, uncomplicated; F15.90 Other stimulant use, unspecified, uncomplicated; R45.850 Homicidal ideations; F17.200 Nicotine dependence, unspecified, uncomplicated

== ENCOUNTER 2021-12-19 08:19 | Emergency (ER) | payer OTHER, MEDICAID ==
[~2021-12-19] VITALS: Ht 190.5 cm; Wt 95.5 kg
[~2021-12-19 08:19] MED LIST changes: +NAPR-837 PO; +NICO21PAT TD
[2021-12-19] MEDS ORDERED: BUPR1FIL (08:28)
[2021-12-19 09:32] LABS: RSV AMPLIFICATION NEGATIVE (NEGATIVE)
[2021-12-19 12:04] VITALS: BP 110/64
== END 2021-12-19 12:05 | disposition home or self-care (01) ==
LOC: M ED 08:19
DX: J06.9 Acute upper respiratory infection, unspecified (principal); F17.200 Nicotine dependence, unspecified, uncomplicated; F12.10 Cannabis abuse, uncomplicated; Z86.16 Personal history of COVID-19

== ENCOUNTER 2024-08-23 10:59 | Emergency (ER) | payer OTHER ==
[~2024-08-23] VITALS: Ht 193 cm; Wt 94.3 kg
[~2024-08-23 10:59] MED LIST changes: +BUPR1FIL; +GABA-1172 PO; -GABA-282 PO
[2024-08-23] MEDS ORDERED: CLON-412 (11:15)
[2024-08-23] MEDS ORDERED: NALO4SPR20 (11:15)
[2024-08-23 12:32] LABS: BLOOD UREA NITROGEN 11 MG/DL (9-23); CALCIUM LEVEL 9.4 MG/DL (8.5-10.1); CARBON DIOXIDE LEVEL 29 MMOL/L (20-31); CHLORIDE LEVEL 104 MMOL/L (98-107); CREATININE FOR GFR 0.84 MG/DL (0.70-1.30); GLOMERULAR FILTRATION RATE > 60.0 (>60); GLUCOSE, FASTING 91 MG/DL (60-100); POTASSIUM SERUM 4.4 MMOL/L (3.5-5.1); SODIUM LEVEL 140 MMOL/L (136-145)
[2024-08-23 13:05] LABS: HIV 1&2 SCREEN NEGATIVE (NEGATIVE)
[2024-08-23] MEDS ORDERED: DOXY-441 PO (13:09)
[2024-08-23] MEDS ORDERED: MUPI2OI TOP (13:09)
[2024-08-23 13:17] LABS: BASO # 0.1 10^3/uL (0.0-0.2); BASO % 1.2 % (0.0-1.0); EOS # 0.3 10^3/uL (0.0-0.5); EOS % 3.7 % (0.0-3.0); HEMATOCRIT 44.2 % (42.0-52.0); HEMOGLOBIN 14.9 g/dl (13.5-17.5); LYMPH # 2.3 10^3/uL (1.5-5.0); LYMPH % 30.2 % (24.0-44.0); MEAN CORPUSCULAR HEMOGLOBIN 31.2 pg (27.0-33.0); MEAN CORPUSCULAR HGB CONC 33.7 g/dl (32.0-36.5); MEAN CORPUSCULAR VOLUME 92.7 fl (80.0-96.0); MONO # 0.7 10^3/uL (0.0-0.8); MONO % 8.8 % (2.0-8.0); NEUTROPHILS # 4.2 10^3/uL (1.5-8.5); PLATELET COUNT, AUTOMATED 205 10^3/uL (150-450); RED BLOOD COUNT 4.77 10^6/uL (4.30-6.10); WHITE BLOOD COUNT 7.6 10^3/uL (4.0-10.0)
[2024-08-23 13:57] VITALS: BP 118/75; TEMP 97.6; O2SAT 100
== END 2024-08-23 14:00 | disposition home or self-care (01) ==
LOC: M ED 10:59
DX: L98.8 Other specified disorders of the skin and subcutaneous tissue (principal); B19.20 Unspecified viral hepatitis C without hepatic coma; F41.9 Anxiety disorder, unspecified; F32.A Depression, unspecified; F17.200 Nicotine dependence, unspecified, uncomplicated; F12.10 Cannabis abuse, uncomplicated; Z79.2 Long term (current) use of antibiotics; Z79.899 Other long term (current) drug therapy

== ENCOUNTER 2024-10-29 14:52 | Emergency (ER) | payer OTHER ==
[~2024-10-29] VITALS: Ht 193 cm; Wt 99.0 kg
[~2024-10-29 14:52] MED LIST changes: +CLON-412; +DOXY-441 PO; +MUPI2OI TOP; +NALO4SPR20
[2024-10-29] MEDS ORDERED: BUPR150T12 (15:16)
[2024-10-29 17:12] VITALS: BP 125/81; TEMP 101.1; O2SAT 99
[2024-10-29] MEDS: ACETAMINOPHEN 500 MG TAB PO ONE (17:23)
== END 2024-10-29 17:38 | disposition left against medical advice (07) ==
LOC: M ED 14:52
DX: Z53.21 Procedure and treatment not carried out due to patient leaving prior to being seen by health care provider (principal)